=== PATIENT | female | born 1995 | race Caucasian/White ===

== ENCOUNTER 2016-07-22 09:20 | Emergency (ER) | payer OTHER ==
[2016-07-22 09:25] VITALS: BP 119/70; PULSE 98; TEMP 98; BMI 18.9
--- NOTE | 2016-07-22 09:53 | PDOC ---
History of Present Illness - General Chief Complaint: Cold Symptoms Stated Complaint: FLU SYMPTOMS Time Seen by Provider: 07/22/16 09:44 History Source: Patient Exam Limitations: No Limitations - History of Present Illness Initial Comments: 07/22/16 09:49 20 yr female with flu like symptoms for 3 days. sore throat, cough body aches. Past History - Past Medical History Allergies/Adverse Reactions: Allergies Allergy/AdvReac Type Severity Reaction Status Date / Time No Known Allergies Allergy Verified 07/22/16 09:22 Home Medications: Ambulatory Orders NK [No Known Home Medication] 08/11/15 Thyroid Disease: Yes (hypothryroid) - Immunization History Immunization Up to Date: No - Psycho/Social/Smoking Cessation Hx Anxiety: No Suicidal Ideation: No Smoking History: Never smoked Have you smoked in the past 12 months: No Number of Cigarettes Smoked Daily: 1 Information on smoking cessation initiated: No Hx Alcohol Use: No Drug/Substance Use Hx: Yes (FATEMEH) Substance Use Type: Marijuana *Physical Exam - Vital Signs Last Vital Signs Temp Pulse Resp BP Pulse Ox 98.0 F 98 H 18 119/70 100 07/22/16 09:22 07/22/16 09:22 07/22/16 09:22 07/22/16 09:22 07/22/16 09:22 - Physical Exam General Appearance: Yes: Nourished, Appropriately Dressed HEENT: positive: EOMI, ROSARIO, Normal ENT Inspection, TMs Normal, Pharyngeal Erythema, Tonsillar Erythema. negative: Tonsillar Exudate Neck: positive: Supple. negative: Lymphadenopathy (R), Lymphadenopathy (L) Respiratory/Chest: positive: Lungs Clear, Normal Breath Sounds. negative: Chest Tender Cardiovascular: positive: Regular Rhythm, Regular Rate Gastrointestinal/Abdominal: positive: Normal Bowel Sounds, Soft. negative: Tender Lymphatic: negative: Adenopathy Musculoskeletal: positive: Normal Inspection Extremity: positive: Normal Capillary Refill, Normal Inspection, Normal Range of Motion Integumentary: positive: Normal Color, Dry, Warm Neurologic: positive: Fully Oriented, Alert, Normal Mood/Affect, Normal Response , Motor Strength 5/5 Medical Decision Making - Medical Decision Making 07/22/16 10:31 cc: fever, body aches for 3 days took ibuprofen at 730am no nvd no abd pain or urinary complaints will check for strep non toxic appearing female 07/22/16 10:32 *DC/Admit/Observation/Transfer Diagnosis at time of Disposition: Viral syndrome - Discharge Dispostion Disposition: HOME Condition at time of disposition: Good - Patient Instructions Additional Instructions: drink pleanty of fluids ibuprofen as needed for fever or body aches (over the counter advil, motrin or ibuprofen ) increase vitamin C and Zinc intake this will help your body fight off infections follow with your doctor in 2-3 days for follow up
== END 2016-07-22 10:36 | disposition home or self-care (01) ==
LOC: JERFT 09:20
DX: B34.9 Viral infection, unspecified (principal)
CPT/HCPCS: 87070; 87077; 87430; 99281-25

== ENCOUNTER 2016-09-18 12:18 | Emergency (ER) | payer OTHER ==
[2016-09-18 12:25] VITALS: BP 129/77; PULSE 65; TEMP 98.2; BMI 18.1
[2016-09-18 12:53] LABS: URINE APPEARANCE TURBID; URINE BILIRUBIN NEGATIVE (NEGATIVE); URINE COLOR DKYELLOW; URINE GLUCOSE (UA) NEGATIVE (NEGATIVE); URINE KETONE NEGATIVE (NEGATIVE); URINE NITRITE NEGATIVE (NEGATIVE); URINE UROBILINOGEN NEGATIVE E.U./dl (0.2-1.0)
[2016-09-18 12:54] LABS: URINE BLOOD 3+ (NEGATIVE); URINE LEUK ESTERASE 2+ (NEGATIVE); URINE PROTEIN 2+ (NEGATIVE)
[2016-09-18 12:57] LABS: URINE RBC 5654 /hpf (0-3); URINE WBC 2025 /hpf (3-5)
--- NOTE | 2016-09-18 13:00 | PDOC ---
History of Present Illness - General Chief Complaint: Hematuria Stated Complaint: POSSIBLE UTI Time Seen by Provider: 09/18/16 12:54 History Source: Patient Exam Limitations: No Limitations - History of Present Illness Initial Comments: CHIEF COMPLAINT: 20 y/o afebrile female with no significant PMH c/o dysuria and hematuria today. HISTORY OF PRESENT ILLNESS: The patient states she woke up and felt like she had to pee a lot but only a small amount came out and it felt like she was urinating glass. She states when she looked in the toilet there was blood. She states she continues to feel like she has to pee constantly but only a small amount comes out. She denies f/c, n/v/d, CP, SOB, back pain, side pain. Vital signs on arrival are within normal limits. REVIEW OF SYSTEMS: GENERAL/CONSTITUTIONAL: No fever/chills. No weakness. No weight change. HEAD, EYES, EARS, NOSE AND THROAT: No change in vision. No ear pain or discharge. No sore throat. CARDIOVASCULAR: No chest pain or shortness of breath. RESPIRATORY: No cough, wheezing, or hemoptysis. GASTROINTESTINAL: +lower abd pain. No nausea, vomiting, diarrhea. GENITOURINARY: +dysuria, hematuria and increased frequency MUSCULOSKELETAL: No joint or muscle swelling or pain. No neck or back pain. SKIN: No rash or easy bruising. NEUROLOGIC: No headache, vertigo, loss of consciousness, or loss of sensation. PHYSICAL EXAM: GENERAL: The patient is awake, alert, and fully oriented, in no acute distress. She appears uncomfortable. HEAD: Normal with no signs of trauma. ENT: Pupils equal, round and reactive to light, extraocular movements intact, sclera anicteric, conjunctiva clear. Neck supple. LUNGS: Clear to auscultation bilaterally. Normal excursion. No respiratory distress or use of accessory muscles. CV: RRR, S1/S2, no MRG. Cap refill < 2 sec. ABDOMEN: Soft, non-distended, TTP of suprapubic region. No flank pain b/l. BACK: No CVA TTP b/l. EXTREMITIES: Normal range of motion, no edema. NEUROLOGICAL: Normal speech, normal gait. CN II-XII grossly intact. PSYCH: Normal mood, normal affect. SKIN: Warm, dry, normal turgor, no rashes or lesions noted. Past History - Past Medical History Allergies/Adverse Reactions: Allergies Allergy/AdvReac Type Severity Reaction Status Date / Time No Known Allergies Allergy Verified 09/18/16 12:26 Home Medications: Ambulatory Orders Cephalexin Monohydrate [Keflex -] 500 mg PO BID #14 capsule 09/18/16 Sertraline HCl [Zoloft -] 25 mg PO DAILY 09/18/16 Thyroid Disease: Yes (hypothryroid) - Immunization History Immunization Up to Date: No - Psycho/Social/Smoking Cessation Hx Anxiety: Yes Suicidal Ideation: No Smoking History: Current some day smoker Have you smoked in the past 12 months: No Number of Cigarettes Smoked Daily: 1 Information on smoking cessation initiated: No Hx Alcohol Use: No Drug/Substance Use Hx: Yes Substance Use Type: Marijuana *Physical Exam - Vital Signs Last Vital Signs Temp Pulse Resp BP Pulse Ox 98.2 F 65 18 129/77 97 09/18/16 12:22 09/18/16 12:22 09/18/16 12:22 09/18/16 12:22 09/18/16 12:22 ED Treatment Course - ADDITIONAL ORDERS Additional order review: Laboratory Results 09/18/16 12:30 Urine Color Dkyellow Urine Appearance Turbid Urine pH 6.0 Ur Specific [place] 1.018 Urine Protein 2+ H Urine Glucose (UA) Negative Urine Ketones Negative Urine Blood 3+ H Urine Nitrite Negative Urine Bilirubin Negative Urine Urobilinogen Negative Ur Leukocyte Esterase 2+ H Urine HCG, Qual Negative Medical Decision Making - Medical Decision Making A/P: 20 y/o female with signs and symptoms of UTI. Plan is as follows: 1. UA/culture 2. hcg hcg - negative Laboratory Tests 09/18/16 12:30 Urine Protein 2+ H Urine Glucose (UA) Negative Urine Ketones Negative Urine Blood 3+ H Urine Nitrite Negative Urine Bilirubin Negative Urine Urobilinogen Negative Ur Leukocyte Esterase 2+ H Urine HCG, Qual Negative will treat for UTI. Will give first dose of Keflex in the ER. Will send rx for Keflex to her pharmacy. Instructed her to drink plenty of fluids and finish entire dose of Keflex. Instructed her to f/u with her PCP in 1 week and return to the ER immediately with any worsening or concerning symptoms. The patient verbalizes understanding of all instructions, has no further questions and is awaiting discharge. *DC/Admit/Observation/Transfer Diagnosis at time of Disposition: UTI (urinary tract infection) Qualifiers: Urinary tract infection type: acute cystitis Hematuria presence: with hematuria Qualified Code(s): N30.01 - Acute cystitis with hematuria - Discharge Dispostion Disposition: HOME Condition at time of disposition: Good - Prescriptions Prescriptions: Cephalexin Monohydrate [Keflex -] 500 mg PO BID #14 capsule - Referrals Referrals: Yessenia Mon MD [Primary Care Provider] - 1 week - Patient Instructions Printed Discharge Instructions: DI for Urinary Tract Infection (UTI) Additional Instructions: Discharge Instructins: -Take entire 7 days of antibiotics -Drink LOTS of water (at least 64oz daily) -Follow up with your doctor within 1 week -Return to the ER immediately if you develop any worsening or concerning symptoms including fever, vomiting, back pain.
[2016-09-18] MEDS ORDERED: CEPHALEXIN MONOHYDRATE 500 MG CAPSULE (UD) ONE (13:26)
[2016-09-18] MEDS: CEPHALEXIN MONOHYDRATE 500 MG CAPSULE (UD) PO ONE (13:27)
== END 2016-09-18 13:40 | disposition home or self-care (01) ==
LOC: JERFT 12:18
DX: N30.01 Acute cystitis with hematuria (principal); E03.9 Hypothyroidism, unspecified; F17.210 Nicotine dependence, cigarettes, uncomplicated
CPT/HCPCS: 81003; 81015; 84703; 87086; 99281-25

== ENCOUNTER 2018-03-18 09:39 | Emergency (ER) | payer OTHER ==
[2018-03-18 10:08] VITALS: BP 114/69; PULSE 86; TEMP 98; BMI 17.9
[2018-03-18] MEDS ORDERED: ONDANSETRON *ODT* 4 MG TABLET SL ONE (10:45)
--- NOTE | 2018-03-18 10:47 | PDOC ---
History of Present Illness - General Chief Complaint: Psychiatric Stated Complaint: PANIC ATTACK Time Seen by Provider: 03/18/18 10:43 History Source: Patient Exam Limitations: No Limitations - History of Present Illness Initial Comments: 22 yr female states she was driving to her mothers house having an argument with her boyfriend on the phone and became very upset causing her to cry, feel heart palpitations and breathe fast. pt called 911 and on arrival has calmed down now feels nausea and headache. pt has history of anxiety in the past on no meds now. pt denies SI , is with her mom. Severity: mild Past History - Past Medical History Allergies/Adverse Reactions: Allergies No Known Allergies Allergy (Verified 03/18/18 10:05) Home Medications: Ambulatory Orders NK [No Known Home Medication] 03/18/18 Psychosocial History: Yes: anxiety Surgical History: Yes: No Surgical History - Family History Significant Family History: Yes: no pertinent family hx - Immunization History Immunization Up to Date: No - Social History Smoking Status: Never smoked Number of Cigarettes Per Day: 1 *Review of Systems - Review of Systems Able to Perform ROS?: Yes Constitutional: No: Symptoms Reported HEENTM: No: Symptoms Reported Respiratory: No: Symptoms reported Cardiac (ROS): No: Symptoms Reported ABD/GI: No: Symptoms Reported : No: Symptoms Reported Musculoskeletal: No: Symptoms Reported Integumentary: No: Symptoms Reported Neurological: No: Symptoms reported Psychiatric: Yes: Anxiety *Physical Exam - Vital Signs Last Vital Signs Temp Pulse Resp BP Pulse Ox 98.0 F 86 18 114/69 100 03/18/18 10:05 03/18/18 10:05 03/18/18 10:05 03/18/18 10:05 03/18/18 10:05 - Physical Exam General Appearance: Yes: Nourished, Appropriately Dressed HEENT: positive: EOMI, ROSARIO, TMs Normal, Pharynx Normal Respiratory/Chest: positive: Lungs Clear, Normal Breath Sounds Cardiovascular: positive: Regular Rhythm, Regular Rate Gastrointestinal/Abdominal: positive: Normal Bowel Sounds, Soft. negative: Tender Musculoskeletal: positive: Normal Inspection Extremity: positive: Normal Capillary Refill, Normal Inspection Integumentary: positive: Normal Color, Dry, Warm Neurologic: positive: Fully Oriented, Alert, Normal Mood/Affect, Normal Response , Motor Strength 5/5, Other (Aox3 no distress at present). negative: Confused, Disoriented, Depressed Affect Plan - Order(s) Order(s): Orders Medication Instructions Recorded NK [No Known Home Medication] 03/18/18 *DC/Admit/Observation/Transfer Diagnosis at time of Disposition: Panic attack - Discharge Dispostion Disposition: HOME Condition at time of disposition: Good - Referrals - Patient Instructions Additional Instructions: take benadryl 25mg [id number] as needed get pleanty of rest and eat well follow with your previous therapist for follow up Return if worse - Post Discharge Activity
[2018-03-18] MEDS ORDERED: ONDANSETRON *ODT* 4 MG TABLET ONE (10:48)
== END 2018-03-18 11:35 | disposition home or self-care (01) ==
LOC: JERFT 09:39
DX: F41.0 Panic disorder [episodic paroxysmal anxiety] (principal)
CPT/HCPCS: 99281-25; Q0162